=== PATIENT | male | born 1945 | race African-American/Black ===

== ENCOUNTER 2017-04-11 12:09 | Emergency (ER) | payer OTHER, BC, MEDICARE ==
[~2017-04-11] VITALS: Ht 177.8 cm; Wt 75.0 kg
[2017-04-11] MEDS ORDERED: LISI2.5T47 PO (12:13)
[2017-04-11] MEDS ORDERED: AMLO2.5T45 PO (12:13)
[2017-04-11] MEDS ORDERED: BACLOFEN 10MG TABLET PO ONE (12:30)
[2017-04-11] MEDS ORDERED: IBUPROFEN 600MG TABLET PO ONE (12:30)
[2017-04-11 12:35] VITALS: BP 185/93
== END 2017-04-11 13:50 | disposition home or self-care (01) ==
LOC: ER 12:19
DX: M54.5 Low back pain (principal); I10 Essential (primary) hypertension; V43.52XA Car driver injured in collision with other type car in traffic accident, initial encounter; Y93.89 Activity, other specified; Y92.488 Other paved roadways as the place of occurrence of the external cause
CPT/HCPCS: 71010; 72070; 72100; 99284

== ENCOUNTER → 2020-12-23 | Outpatient (CLI) | payer MEDICARE, BC ==
[~2020-12-23] MED LIST: AMLO2.5T45 PO; LISI2.5T47 PO
== END | disposition home or self-care (01) ==
LOC: LAB 07:43
PROVIDERS: ATTEND Internal Medicine Pulmonary Disease
DX: Z20.822 Contact with and (suspected) exposure to COVID-19 (principal)
CPT/HCPCS: C9803; U0003; U0005

== ENCOUNTER → 2021-04-05 | Outpatient (CLI) | payer MEDICARE, BC | END | disposition home or self-care (01) | LOC: LAB 12:42 | PROVIDERS: ATTEND Internal Medicine Pulmonary Disease | DX: Z11.52 Encounter for screening for COVID-19 (principal) | CPT/HCPCS: C9803; U0003; U0005 ==

== ENCOUNTER → 2021-10-04 | Outpatient (CLI) | payer MEDICARE, BC | END | disposition home or self-care (01) | LOC: LAB 12:57 | PROVIDERS: ATTEND Internal Medicine Pulmonary Disease | DX: Z20.822 Contact with and (suspected) exposure to COVID-19 (principal) | CPT/HCPCS: 87426; C9803 ==

== ENCOUNTER → 2021-10-05 | Outpatient (CLI) | payer MEDICARE, BC | END | disposition home or self-care (01) | LOC: PF 12:21 | PROVIDERS: ATTEND Internal Medicine Pulmonary Disease | DX: J98.4 Other disorders of lung (principal) | CPT/HCPCS: 94010; 94727; 94729 ==

== ENCOUNTER → 2021-10-07 | Outpatient (CLI) | payer MEDICARE, BC | END | disposition home or self-care (01) | LOC: CARD 12:56 | PROVIDERS: ATTEND Internal Medicine Pulmonary Disease | DX: I08.8 Other rheumatic multiple valve diseases (principal); R06.00 Dyspnea, unspecified | CPT/HCPCS: 93306 ==